=== PATIENT | male | born 1945 | race Caucasian/White ===

== ENCOUNTER 2022-04-18 08:25 | Observation (INO) | payer MEDICARE ==
[~2022-04-18] VITALS: Ht 190.5 cm; Wt 92.5 kg
[2022-04-18 08:25] VITALS: BP 121/67
[2022-04-18 08:28] VITALS: BP 121/67
--- NOTE | 2022-04-18 08:46 | ER.PDOC ---
General Chief Complaint: Altered Mental Status Stated Complaint: MEDICAL CLEARANCE Time seen by MD: 08:45 Source: patient, police Exam Limitations: no limitations History of Present Illness Initial Comments 76-year-old male who was brought here by police with confusion. He was found on the road while apparently traveling from 1 state to another. Apparently he indicated he is traveling with his grandchildren but that does not appear to be the case. The patient is awake and alert and appears to be in no distress and he indicated no systemic complaints but he is pleasantly confused. He knows we are in the hospital but he does not know the month. He does know that it is 2021. Patient has history of diabetes and is taking metformin. Also history of hypertension. Denies any shortness of breath. No fever and no chills. No cough. No abdominal pain. No nausea no vomiting. No burning upon urination. No diarrhea. Here he presented with no fever. Allergies: Coded Allergies: nitroglycerin (Verified Allergy, Unknown, heart stops, 04/18/22) Past Medical History Medical History: coronary artery disease, diabetes, other Surgical History: coronary bypass surgery LMP (females 10-50): N/A Not applicalbe Family History Significant Family History: no pertinent family hx Social History Smoking: non-smoker Alcohol Use: none Drug Use: none Reviewed Nursing Reviewed: Vital Signs, Abn. Noted, Nursing Assessment Review of Systems Constitutional: denies no symptoms reported, denies see HPI, denies chills, denies diaphoresis, denies fever, denies malaise, denies weakness, denies other Eyes: denies no symptoms reported, denies see HPI, denies blindness, denies blurred vision, denies drainage, denies decreased acuity, denies foreign body sensation, denies inflammation, denies pain, denies photophobia, denies previous injury, denies shadows, denies tunnel vision, denies vision change, denies contact lenses, denies glasses, denies other Ears, Nose, Mouth, Throat: denies no symptoms reported, denies see HPI, denies ear pain, denies ear discharge, denies nose pain, denies nose discharge, denies epistaxis, denies mouth pain, denies mouth swelling, denies loose teeth, denies throat pain, denies throat swelling Respiratory: denies no symptoms reported, denies see HPI, denies cough, denies orthopnea, denies shortness of breath, denies stridor, denies wheezing, denies other Cardiovascular: denies no symptoms reported, denies see HPI, denies chest pain, denies edema, denies palpitations, denies syncope, denies other Gastrointestinal: denies no symptoms reported, denies see HPI, denies abdominal pain, denies constipation, denies diarrhea, denies nausea, denies vomiting, denies other Genitourinary: denies no symptoms reported, denies see HPI, denies discharge, denies dysuria, denies frequency, denies hematuria, denies pain, denies other Musculoskeletal: denies no symptoms reported, denies see HPI, denies back pain, denies gout, denies joint pain, denies joint swelling, denies muscle pain, denies muscle stiffness, denies neck pain, denies other Skin: denies no symptoms reported, denies see HPI, denies change in color, denies change in hair/nails, denies dryness, denies lesions, denies lumps, denies rash, denies other Psychiatric/Neurological: denies no symptoms reported, denies see HPI, denies anxiety, denies depressed, denies emotional problems, denies cognitive dysfunction, denies headache, denies numbness, denies petit mal seizures, denies tingling, denies tonic-clonic seizures, denies unable to move lower ext, denies unable to move upper ext, denies weakness; other (prior to today no Hx of Dementia) Endocrine: denies no symptoms reported, denies see HPI, denies excessive sweating, denies flushing, denies intolerance to cold, denies intolerance to heat, denies increased hunger, denies increased thrist, denies increased urine, denies unexplained weight gain, denies unexplaned weight loss, denies other Hematologic/Lymphatic: denies no symptoms reported, denies see HPI, denies anemia, denies blood clots, denies easy bleeding, denies easy bruising, denies swollen glands, denies other All Other Systems: Reviewed and Negative Physical Exam General Appearance: alert, no distress HEENT: no apparent trauma, EOM's intact, no nystagmus Neuro/Psych: nml speech/cognition, nml mood/affect, disoriented to time Cranial Nerves: nml as tested Cerebellar: nml as tested Peripheral Exam: motor nml, sensation nml, reflexes nml Neck: supple, non-tender Respiratory: no resp distress, breath sounds nml CVS: reg rate & rhythm, heart sounds nml Abdomen: non-tender, no organomegaly Skin: color nml, no rash Extremities: non-tender, nml ROM Results/Orders Results/Orders Orders - REAGAN CROW MD Cbc With Auto Diff (04/18/22 08:37) Comprehensive Metabolic Panel (04/18/22 08:37) Creatine Kinase (04/18/22 08:37) Urinalysis (04/18/22 08:37) Salicylate(Ml) (04/18/22 08:37) Acetaminophen(Ml) (04/18/22 08:37) Alcohol(Ml) (04/18/22 08:37) Ekg-Routine (04/18/22 08:37) Drug Scrn Med W Confirmation (04/18/22 08:37) Troponin I High Sensitivity (04/18/22 08:37) Covid19 Antigen Britt Magda (04/18/22 08:37) Strep Screen (04/18/22 08:37) Ammonia (04/18/22 08:37) Thyroid Stimulating Horm(Ml) (04/18/22 08:37) Lactic Acid(Ml) (04/18/22 08:44) Ct Head Wo Contrast (04/18/22 08:47) Urine Culture (04/18/22 08:25) 0.9 % Sodium Chloride (Ns 1000ml) (04/18/22 10:00) 0.9 % Sodium Chloride (Ns 1000ml) (04/18/22 10:00) Insulin Regular, Human (Humulin R) (04/18/22 10:00) Admit Orders (04/18/22 09:55) Vital Signs Date Time Temp Pulse Resp B/P (MAP) Pulse Ox O2 Delivery O2 Flow Rate FiO2 04/18/22 08:28 98.5 110 18 121/67 (85) 96 Room Air* 0 21 04/18/22 08:25 98.5 110 20 98 04/18/22 08:25 98.5 110 18 Laboratory Tests Test 04/18/22 08:49 04/18/22 08:58 Urine Collection Type UNKNOWN Urine Color YELLOW Urine Appearance CLEAR Urine Bilirubin 1+ (NEGATIVE) H Urine Ketones 1+ (NEGATIVE) H Urine Specific [place] 1.020 (1.005-1.030) Urine pH 5.0 (4.5-8.0) Urine Protein NEGATIVE (NEGATIVE) Urine Urobilinogen 1.0 E.U./dL (0.2) Urine Nitrate NEGATIVE (NEGATIVE) Urine Leukocyte Esterase NEGATIVE (NEGATIVE) Urine Glucose (Auto)(UA) 500 mg/dL (NEGATIVE) H Urine Blood TRACE-INTACT (NEGATIVE) H Urine RBC 2-5 RBC/HPF (NONE SEEN) Urine WBC 2-5 WBC/HPF (0-2) Urine Squamous Epithelial Cells FEW (<=FEW) Urine Bacteria FEW (NONE SEEN) H Urine Opiates Screen NEGATIVE (c/o300ng/mL) Urine Methadone Screen NEGATIVE (c/o300ng/mL) Urine Barbiturates Screen NEGATIVE (c/o200ng/mL) Urine Phencyclidine Screen NEGATIVE (c/o 25ng/mL) Ur Amphetamine/Methamphetamine NEGATIVE (mz4957ko/mL) Urine MDMA Screen (Ecstasy) NEGATIVE (c/o300ng/mL) Urine Benzodiazepines Screen NEGATIVE (c/o200ng/mL) Urine Cocaine Metabolite Screen NEGATIVE (c/o300ng/mL) Ur Tetrahydrocannabinol (THC) Scrn NEGATIVE (c/o 50ng/mL) SARS-CoV-2 Antigen (Rapid) NEGATIVE (NEGATIVE) Group A Streptococcus Screen NEGATIVE (NEGATIVE) White Blood Count 7.2 10^3/uL (4.5-11.0) Red Blood Count 4.27 10^6/uL (4.50-5.90) L Hemoglobin 13.0 g/dL (13.9-16.3) L Hematocrit 40.0 % (37.0-53.0) Mean Corpuscular Volume 93.7 fL (78-100) Mean Corpuscular Hemoglobin 30.4 pg (26-34) Mean Corpuscular Hemoglobin Concent 32.5 g/dL (33-36.5) L Red Cell Distribution Width 13.0 % (11.5-14.5) Platelet Count 154 10^3/uL (150-400) Mean Platelet Volume 12.3 fL (7.8-11.0) H Neutrophils (%) (Auto) 71.4 % (41.0-85.0) Lymphocytes (%) (Auto) 14.9 % (24.0-44.0) L Monocytes (%) (Auto) 11.8 % (5.0-12.0) Neutrophils # (Auto) 5.1 10^3/uL (1.8-7.7) Lymphocytes # (Auto) 1.07 10^3/uL1 (1.0-4.8) Monocytes # (Auto) 0.9 10^3/uL (0.3-0.8) H Absolute Immature Granulocyte (auto 0.03 10^3 u/L (0-2) Absolute Eosinophils (auto) 0.1 10^3/uL (0.0-0.2) Immature Granulocytes % 0.40 % (0.00-0.50) Eosinophils % 0.8 % (0.0-5.0) Basophils % 0.7 % (0.0-0.2) H Basophils # 0.1 10^3/uL (0.0-0.1) Sodium Level 131 mmol/L (132-145) L Potassium Level 4.1 mmol/L (3.6-5.2) Chloride Level 98.0 mmol/L (96-109) Carbon Dioxide Level 18.7 mmol/L (20.0-32) L Anion Gap 18.4 Blood Urea Nitrogen 27 mg/dL (7-18) H Creatinine 1.91 mg/dL (0.59-1.40) H Estimated GFR () 41.5 (>/=60) Est GFR (CKD-EPI)(Non-Afr Bulgarian) 34.3 (>/=60) BUN/Creatinine Ratio 14.0 Glucose Level 317 mg/dL (70-110) H Lactic Acid Level 1.2 mmol/L (0.5-1.9) Calcium Level 9.1 mg/dL (8.4-10.5) Total Bilirubin 1.0 mg/dL (0.2-1.0) Aspartate Amino Transferase (AST) 13 U/L (0-35) Alanine Aminotransferase (ALT) 24 U/L (12-78) Alkaline Phosphatase 135 U/L (50-136) Ammonia 8 umol/L (11-35) L Total Creatine Kinase 92 U/L (39-308) Troponin I High Sensitivity 11 ng/L (0-75) Total Protein 7.7 g/dL (6.4-8.2) Albumin 4.0 g/dL (3.4-5.0) Globulin 3.7 Albumin/Globulin Ratio 1.081 Thyroid Stimulating Hormone (TSH) 0.403 mIU/mL (0.358-3.740) Salicylates Level < 2.8 mg/dL (2.8-20.0) L Acetaminophen Level < 2 ug/mL (10-30) L Serum Alcohol < 3 mg/dL (0-50) Progress Progress Patient with confusion. Unclear if he has longstanding mild dementia that has some mild pain not diagnosed in the past. In any case he also dehydrated with mild hyponatremia. Will be given some IV fluids. Admit to observation. EKG/XRAY/CT/US EKG Comments: SR@ 97, pr 181, qrs 116. St segment normal CT Comments: Head Ct- no acute dz ER DEPART Departure Time of Disposition: 10:02 Disposition: 02 SHORT TERM HOSPITAL Impression: Primary Impression: Dehydration Additional Impressions: Hyponatremia Hyperglycemia Acute encephalopathy Condition: Stable Duration or Time Spent with Pa: 45 Problem Qualifiers REAGAN CROW MD Apr 18, 2022 08:46
[2022-04-18 09:05] LABS: BASOPHIL # 0.1 10^3/uL (0.0-0.1); BASOPHIL % 0.7 % (0.0-0.2); EOSINOPHIL # 0.1 10^3/uL (0.0-0.2); EOSINOPHIL % 0.8 % (0.0-5.0); LYMPHOCYTES # 1.07 10^3/uL1 (1.0-4.8); LYMPHOCYTES % 14.9 % (24.0-44.0); MEAN CORP HGB 30.4 pg (26-34); MONOCYTES # 0.9 10^3/uL (0.3-0.8); MONOCYTES % 11.8 % (5.0-12.0); NEUTROPHIL # 5.1 10^3/uL (1.8-7.7); NEUTROPHILS % 71.4 % (41.0-85.0)
--- NOTE | 2022-04-18 09:06 | PCM.EKG ---
[facility] Test Date: 2022-04-18 Test Time: 08:53:51 Pat Name: BUFFY SALTER Department: Room: Gender: M Deer Farmer: horacio : 1945 Requested By: REAGAN CROW Order Number: [id number] Reading MD: Measurements Intervals [place] Rate: 97 P: 52 AK: 181 QRS: -88 QRSD: 116 T: 70 QT: 351 QTc: 446 Interpretive Statements Sinus rhythm Left anterior fascicular block Anterior infarct, old ST elevation, consider inferior injury No previous ECG available for comparison Please click the below link to view image of tracing.
[2022-04-18 09:26] LABS: BILIRUBIN,URINE 1+ (NEGATIVE)
[2022-04-18 09:32] LABS: CARBON DIOXIDE 18.7 mmol/L (20.0-32); GLUCOSE 317 mg/dL (70-110)
--- NOTE | 2022-04-18 09:50 | DIREP ---
PROCEDURE:CT HEAD OR BRAIN W/O CONTRAST COMPARISON:None. INDICATIONS:ams TECHNIQUE:CT images were created without intravenous contrast. FINDINGS: VENTRICLES:There is mild prominence of the ventricles and cortical sulci consistent with age related involutional changes. CEREBRUM:Small foci of diminished attenuation in the supratentorial white matter consistent with mild leukoaraiosis. CEREBELLUM:Negative. BRAINSTEM:Negative. BASAL CISTERNS:Negative. HEMORRHAGE (Vol L*W*H*.52):No MASS LESION:No ACUTE INFARCT:No SKULL:Normal. SINUSES:Normal. OTHER:None CONCLUSION:No acute intracranial process demonstrated Dictated by: Roverto Gauthier M.D. on 04/18/2022 at 09:45 AM
[2022-04-18] MEDS ORDERED: NS 1000ML 1,000 ML IV ONE ×2 (10:00)
[2022-04-18] MEDS ORDERED: HUMULIN R SQ ONE (10:00)
[2022-04-18] MEDS ORDERED: NS 1000ML 1,000 ML ONE ×3 (10:02→11:08)
[2022-04-18] MEDS ORDERED: HUMALOG ONE (10:03)
[2022-04-18 13:35] VITALS: BP 112/66
--- NOTE | 2022-04-18 13:44 | NUR ---
OUT OF XL YELLOW NON SKID SOCKS AT THIS TIME
--- NOTE | 2022-04-18 15:02 | NUR ---
DISCHARGE PLAN - SPOUSE COMING FROM [place], [place] PER REVIEW OF PATIENT'S CHART AND ER NOTE FROM DOMITILA BOWLES RN - PATIENT BROUGHT IN BY [facility] OFFICE AND [place] F[place] EMS ON [address]. ACCORDING TO PATIENT FAMILY - PATIENT ON HIS WAY FROM [place] TO [place], BUT GOT LOST AND HAS BEEN WONDERING AROUND THE [place] OF [place] AND [place]. PATIENT'S FAMILY IS FLYING OUT FROM [place] . PATIENT THINKS HIS GREAT GRANDDAUGHTERS HAVE BEEN TRAVELING WITH HIM. CM ABLE TO LOCATE PATIENT'S PCP - DR MARINO ARCHULETA@[phone]. CM SPOKE WITH SAMMY AND PATIENT LAST SEEN VIA DR ARCHULETA ON 04/06/22. PER SAMMY - PATIENT WAS SEEN FOR HIS UNCONTROLLED DIABETES AND THEIR RECORDS SHOW NO DX OF DEMENTIA OR ALZHEIMERS. CM REQUESTED THEY FAX PATIENT'S LAST VISIT TO [phone] AND SAMMY INFORMED CM THAT SHE WOULD SEND MESSAGE SO THEY COULD FAX PATIENT'S RECORD. CM INFORMED SAMMY THAT CM COULD FAX PATIENT'S CLINICAL RECORDS TO PATIENT'S PCP - DR MARINO ARCHULETA. FAX #[phone]. [email or web address] AND VISITED WITH PATIENT ABOUT DISCHARGE PLANS, NEEDS AND GOALS. PATIENT PLEASANT, FRIENDLY AND TALKATIVE DURING CM VISIT. PATIENT REPORTS THAT HE AND HIS FAMILY HAVE COME TO A DECISION THAT HE HAS ALZHEIMERS. HIS MOTHER WAS A TWIN AND BOTH HIS MOTHER AND AUNT FROM ALZHEIMERS. PATIENT REPORTS THAT HE WAS HEADED TO [place] TO GO TO HIS SISTER'S . REPORTS THAT HIS DIDN'T LIKE HIS SISTER AND HE WANTED TO GO TO THE AND SO HE TOLD HER SHE DIDN'T HAVE TO COME WITH HIM. REPORTS THAT HE BECAME LOST WITH ALL OF THE CONSTRUCTION AND UNSURE OF WHERE HE IS NOW. REPORTS THAT HIS MEDICATION IS IN HIS TRUCK, BUT THE GINOR[facility]'S OFFICE TOOK IT. PATIENT CONTINUES TO SAY "I THINK I HAVE ALZHEIMER'S" AND UNSURE OF WHERE HE IS. PATIENT ABLE TO NAME PATIENT'S PCP IN [place], RECITES HIS ADDRESS. STATES APPRECIATION FOR HIS LUNCH TRAY SERVED AND STATES "I HAVE EATEN NEARLY ALL OF IT." PATIENT'S SPOUSE IS SUPPOSE TO BE FLYING IN AND BE HERE SOMETIME TONIGHT AND BRINGING ONE OF HIS DAUGHTERS. PATIENT REPORTS HE HAS 2 DAUGHTERS AND ONE LIVES IN [place] AND THE OTHER IN [place]. SOCIAL SERVICE CONSULTED FOR MINI MENTAL TO EVALUATE PATIENT'S COGNITIVE LEVEL. Addendum: 04/19/22 at 1137 by Lore Martinez RN,Case Managemen RN SM SPOKE WITH PATIENT AND PRIOR TO DISCHARGE. PATIENT UP AND GETTING READY TO GO HOME. PATIENT'S SPOUSE HAS PICKUP PATRICIO TRUCKS AND PATIENT ANXIOUSLY LOOKING THROUGH ITEMS FOR KEYS. PATIENT'S SPOUSE PLANNING ON DRIVING PATIENT BACK TO [place], SPOUSE FLEW IN YESTERDAY AND HAD A FREE TICKET TO [place]Y [place] AND TOOK A BUS TO [place] AND PICKED UP VEHICLE. PATIENT CONTINUOUSLY ARGUING WITH SPOUSE THAT HE WAS GOING TO DRIVE. CM SPOKE WITH PATIENT AND SPOUSE AND SPOUSE VERIFIES THAT PATIENT SEE'S DR MARINO ARCHULETA IN [place]. PATIENT'S SPOUSE REPORTS THAT SHE WILL GET PATIENT A F/U APPT WHEN PATIENT GETS BACK TO [place] AND BOTH PATIENT AND SPOUSE AGREEABLE FOR CM TO FAX PATIENT'S CLINICALS. Addendum: 04/19/22 at 1159 by Lore Martinez RN,Case Managemen RN MIKE FAXED PATIENT'S CLINICALS TO DR MARINO ARCHULETA @[phone] WITH PT/OT/EDU/NURSES NOTES ABOUT PATIENT'S COGNITIVE LEVEL. FAX CONFIRMATION RETURNED NO RESPONSE. CM REFAXED CLINICALS TO SAME# AND VERIFIED THE PHONE NUMBER WITH MEÑO - [employer]PER[employer]ILTING. MIKE LEFT MESSAGE WITH MEÑO TO SEND TO PATIENT'S PROVIDER ABOUT CLINICALS FAXED AND PATIENT'S COGNITIVE LEVEL.
--- NOTE | 2022-04-18 15:43 | NUR ---
Addendum Note regarding telephone conversation with patient's spouse and daughter. The patients spouse was advised of the patients presence in the ER. The spouse is preparing to fly from [place], [place] to [place], [place] today. Anticipated here at 1700. Spouse reports the patient has shown a steady congnitive decline over the last two years. Spouse reports that the patient is difficult to deal with at home at that he should not have been traveling. Spouse reports that the patient just went ahead and left. Traveling from [place], [place] to [place], [place] for a of the patients remaining sibling. It appears that the patient was seen at a medical center in [place] 24 hours ago for altered mental state. This is information is taken from the paperwork in possession of the patient. The discharge instructions also note an antibiotic resisitant infection, renal issues and diabetes. It then appears that the patient drove back though this area. According to the [employer]'s Officer Audrey that the patient was found between [place] [facility]. He was at the side of the road looking for his grandchildren. He was brought here for med clearance. Sheriff gupta states he is a risk to himself and others. The patients vehicle has been taken and secured at the local [employer]'s office. Approximately 0920, daughter Dominick contact me after a voicemail was left. She shares the same issues of cognitive decline over approx. 2 years. She also reports that he has covered all of the mirrors in the home and refused to have a haircut due to the mirrors. The daughter also reports that the patient will not allow his spouse to be present during doctor visits of which he had one last week. They are unsure of his medical state or medications he is taking. Family establsihed contact with a fill manager 2 years back but never persued the matter further. Daughter reports he can manage just enough cognition demonstrating his mental faculties are intact. Daughter is extremely concerned about her mother trying to drive the patient back to [place] and actually asked if there was a possibility of medication to sedate the patient long enough for transfer. The daughter reports he is agrressive and violent with his spouse yet pleasant and cooperative with outsides. Daughter reports receving a phone call from a [place] law enforecement officer. When she spoke with her father, the patient reports he has been in the hospital for 3 days and that they took him to [place] for the and brought him back. A short time later I called the daughter back to advise her that her father was going to be admitted.
--- NOTE | 2022-04-18 17:12 | NUR ---
milton eval cancelled by psych nurse, pt to be released to family for care at home in [place], [place]
--- NOTE | 2022-04-18 17:12 | PCM.HP ---
History of Present Illness History of Present Illness This 76-year-old male history of diabetes hypertension, CABG was brought to ER by police because of confusion. He was found on the road traveling from 1 state to another. It looks like patient has dementia and he is not able to give a good history. Most of the information collected from review of the chart. I have been informed that his and daughter are flying to [place] today to pick him up. Patient stated that he is from [facility]. He does not know how he ended up here. He knows that he is in the hospital but he does not know the name of the hospital or name of the city. He does not know the day, date or the month but he knows the year. He does not know the president of [facility]. Review of Systems Neurological: Other (Patient brought to ER for confusion) Allergies: Coded Allergies: nitroglycerin (Verified Allergy, Unknown, heart stops, 04/18/22) VTE VTE Risk Total Score: 3 VTE Risk Score VTE Risk: Score 0-1 = Low Risk (Aggressive mobilization; early ambulation; no VTE prophylaxis required) Score 2: Moderate Risk (Intermittent/Pneumatic Compression Device OR Lovenox/Heparin/Coumadin) Score 3-4: High Risk (Intermittent/Pneumatic Compression Device AND Lovenox/Heparin/Coumadin) Score > or =5: Highest Risk (Intermittent/Pneumatic Compression Device AND Lovenox/Heparin/Coumadin) Antico:Hep/LMWH/Coum/Xarelto: Yes Mechanical device ordered: No VTE VTE Present on Admission: No Currently receiving anticoagul: No VTE Risk Total Score: 3 Exam Vital Signs Vital Signs Date Time Temp Pulse Resp B/P (MAP) Pulse Ox O2 Delivery O2 Flow Rate FiO2 04/18/22 13:35 98.1 80 18 112/66 (81) 92 Room Air* 0 21 General Appearance: Alert, Other ( disoriented) HEENT: PERRLA, Mucous membr. moist/pink Respiratory: Normal air movement Cardiovascular: Regular rate Abdominal: Normal bowel sounds, Soft Extremities: No cyanosis, No edema Neuro: Normal speech, Normal tone, Sensation intact, Cranial nerves 3-12 NL Psych/Mental Status: Other ( confused probably demented) Assessment/Plan Assessment/Plan Assessment/Plan #Altered mental status- brought by police for confusion. We do not know his baseline mental status. He is waiting for his family to come and take him to his home. He denies any complain. He probably has dementia. He is afebrile. His WBC count is normal. Urine drug screen is negative, lactic acid 1.2, creatinine 1.91, BUN 27, sodium 131, glucose 317. UA showed 2-5 WBC per high- power field, leukocyte esterase and nitrites negative. Group A strep screen is negative. COVID test is negative. EtOH level is less than 3. EKG showed sinus rhythm. # hypertension- BP is stable at present. We do not know about his home meds. # History of CABG- he denies any chest pain or shortness of breath now. GUS MURRAY MD Apr 18, 2022 17:12
[2022-04-18 17:17] VITALS: BP 100/60
[2022-04-18] MEDS ORDERED: DEXTROSE 50%-WATER SYRINGE IV PRN (17:30)
[2022-04-18] MEDS ORDERED: LOVENOX SQ SCH (18:00)
[2022-04-18] MEDS ORDERED: LOVENOX SQ ONE (18:43)
[2022-04-18 19:45] VITALS: BP 116/76
[2022-04-18] MEDS ORDERED: HEPARIN SQ SCH (22:00)
--- NOTE | 2022-04-18 23:30 | NUR ---
Conversation with arrived on unit at approximately 1900; states PT reported to her that his PCP told him he had Alzheimer's dementia; reported to this nurse that she does not have the means to make the drive back to [place] and that PT has a history of becoming confused and upset which results in him taking off in his truck. She states she fears that if he knows she has his keys he will take them from her and leave her stranded. reports that increased confusion was noted prior to PT leaving his home, but that the confusion has increased significantly in the past week that he has been driving on his own. While in PT room at approximately 1945, PT states he became confused when driving because he believed he had his small grandchildren with him in the vehicle and when he looked in the backseat and saw they were not there he feared that they were missing or hurt somewhere, at which point he exited his vehicle to search for them and asked for someone who found him on the road to call for police assistance finding the missing children; Following this conversation, the spoke with this nurse privately and stated that the grandchildren he was looking for are now adults and PT had left voice messages to her stating "the babies are missing".
[2022-04-19 00:03] VITALS: BP 121/76
[2022-04-19 04:30] VITALS: BP 128/84
[2022-04-19 05:26] LABS: MEAN CORP HGB 30.6 pg (26-34)
[2022-04-19 05:45] LABS: CARBON DIOXIDE 20.6 mmol/L (20.0-32)
[2022-04-19 07:35] VITALS: BP 133/64
[2022-04-19] MEDS ORDERED: HEPARIN SQ SCH (09:00)
[2022-04-19] MEDS ORDERED: KLOR-CON 10 PO SCH (09:00)
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
--- NOTE | 2022-04-19 11:15 | NUR ---
DISCHARGE INSTRUCTIONS GIVEN, PT VOICED UNDERSTANDING ABOUT FOLLOWING UP WITH PRIMARY CARE PROVIDER IN [place].DISCHARGED VIA W/C ACCOMPANIED BY AND NURSING X1 TO PERSONAL VEHICLE
[2022-04-19 11:20] VITALS: BP 133/64
== END 2022-04-19 11:15 | disposition home or self-care (01) ==
LOC: ER 08:25 → MS 12:12
PROVIDERS: ADMIT Internal Medicine; ATTEND Internal Medicine
DX: R41.82 Altered mental status, unspecified (principal); Z20.822 Contact with and (suspected) exposure to COVID-19; G93.40 Encephalopathy, unspecified; I10 Essential (primary) hypertension; I25.10 Atherosclerotic heart disease of native coronary artery without angina pectoris; E86.0 Dehydration; E87.1 Hypo-osmolality and hyponatremia; E11.65 Type 2 diabetes mellitus with hyperglycemia; N17.9 Acute kidney failure, unspecified; Z95.1 Presence of aortocoronary bypass graft; Z79.899 Other long term (current) drug therapy
CPT/HCPCS: 96372 ×2; 96360; 96361; 99285; 87086; 70450; 87426; 80053 ×2; 85025; 82948; 36415 ×2; 84484; 87070; 83605; 80307; 87880; 82140; 80299 ×2; 82077; 81001; 82550; 84443; 93005; 97166; 97535; 85027; G0378 ×3; J7030; J1815; J1650; J1644; J3490